=== PATIENT | male | born 1965 | race Caucasian/White ===

== ENCOUNTER 2016-12-06 08:32 | Emergency (ER) | payer MEDICAID | END 2016-12-06 10:20 | LOC: ED 08:32 | DX: H61.23 Impacted cerumen, bilateral (principal) | CPT/HCPCS: 69209; 99282 ==

== ENCOUNTER 2017-04-01 13:28 | Emergency (ER) | payer MEDICAID ==
[~2017-04-01] VITALS: Ht 175.3 cm; Wt 106.0 kg
[2017-04-01 13:44] VITALS: BP 117/78
[2017-04-01] MEDS ORDERED: FLUORESCEIN OPHTHALMIC 1 MG STRIP ONE (15:02)
[2017-04-01] MEDS ORDERED: PROPARACAINE OPHTH 0.5%, 15ML ONE (15:02)
[2017-04-01] MEDS ORDERED: OXYcodone/APAP 10/325MG TABLET PO ONE (15:30)
[2017-04-01] MEDS ORDERED: OXYcodone/APAP 10/325MG TABLET ONE (15:49)
== END 2017-04-01 16:16 | disposition home or self-care (01) ==
LOC: ED 16:13
DX: B02.9 Zoster without complications (principal); F17.210 Nicotine dependence, cigarettes, uncomplicated
CPT/HCPCS: 99283

== ENCOUNTER 2017-12-01 20:09 | Emergency (ER) | payer MEDICAID ==
[~2017-12-01] VITALS: Ht 175.3 cm; Wt 111.5 kg
[2017-12-01 20:17] VITALS: BP 113/74
[2017-12-01] MEDS ORDERED: BACITRACIN ZINC OINT 500U/GM, 0.9 GM ONE (20:57)
[2017-12-01] MEDS ORDERED: CIPROFLOXACIN 500 MG TABLET PO ONE (21:00)
[2017-12-01] MEDS ORDERED: KETOROLAC 30 MG/1 ML ONE (21:17)
[2017-12-01] MEDS ORDERED: HYDROcodone/APAP 5/325 TABLET ONE (21:17)
[2017-12-01] MEDS ORDERED: HYDROcodone/APAP 5/325 TABLET PO ONE (21:30)
[2017-12-01] MEDS ORDERED: KETOROLAC 30 MG/1 ML IM ONE (21:30)
== END 2017-12-01 21:27 | disposition home or self-care (01) ==
LOC: ED 21:15
DX: M72.2 Plantar fascial fibromatosis (principal); I10 Essential (primary) hypertension
CPT/HCPCS: 73630; 96372; 99284; J1885

== ENCOUNTER 2018-01-19 18:33 | Emergency (ER) | payer MEDICAID ==
[~2018-01-19] VITALS: Ht 175.3 cm; Wt 109.8 kg
[2018-01-19 18:35] VITALS: BP 129/67
[2018-01-19] MEDS ORDERED: DOCUSATE 50 MG/5 ML ORAL SOL OT ONE (19:00)
[2018-01-19] MEDS ORDERED: CARBAMIDE PEROXIDE EAR DROPS 6.5%, 15ML ONE (19:04)
[2018-01-19] MEDS ORDERED: CARBAMIDE PEROXIDE EAR DROPS 6.5%, 15ML EACH EAR ONE (19:30)
== END 2018-01-19 21:00 | disposition home or self-care (01) ==
LOC: ED 19:45
DX: H61.23 Impacted cerumen, bilateral (principal); I10 Essential (primary) hypertension
CPT/HCPCS: 69209; 99282

== ENCOUNTER 2018-03-07 18:43 | Emergency (ER) | payer MEDICAID ==
[~2018-03-07] VITALS: Ht 175.3 cm; Wt 106.7 kg
[2018-03-07] MEDS ORDERED: GLUCAGON 1 MG ONE (19:24)
[2018-03-07] MEDS ORDERED: GLUCAGON 1 MG IM ONE (19:30)
[2018-03-07] MEDS ORDERED: ONDANSETRON ODT 4 MG ONE (20:01)
[2018-03-07 20:10] VITALS: BP 104/77
== END 2018-03-07 20:32 | disposition home or self-care (01) ==
LOC: ED 19:55
DX: T18.128A Food in esophagus causing other injury, initial encounter (principal); Y93.89 Activity, other specified; Y99.8 Other external cause status; Y92.89 Other specified places as the place of occurrence of the external cause
CPT/HCPCS: 71045; 96372; 99283; J1610

== ENCOUNTER 2018-03-15 21:16 | Emergency (ER) | payer MEDICAID ==
[~2018-03-15] VITALS: Ht 175.3 cm; Wt 100.0 kg
[2018-03-15] MEDS ORDERED: HYDROcodone/APAP 5/325 TABLET ONE (21:58)
[2018-03-15] MEDS ORDERED: HYDROcodone/APAP 5/325 TABLET PO ONE (22:00)
[2018-03-15 22:42] VITALS: BP 109/64
== END 2018-03-15 22:46 | disposition home or self-care (01) ==
LOC: ED 22:40
DX: S86.211A Strain of muscle(s) and tendon(s) of anterior muscle group at lower leg level, right leg, initial encounter (principal); I10 Essential (primary) hypertension; Z21 Asymptomatic human immunodeficiency virus [HIV] infection status; Z90.49 Acquired absence of other specified parts of digestive tract; W01.0XXA Fall on same level from slipping, tripping and stumbling without subsequent striking against object, initial encounter; Y93.89 Activity, other specified; Y92.098 Other place in other non-institutional residence as the place of occurrence of the external cause; Y99.8 Other external cause status
CPT/HCPCS: 99284

== ENCOUNTER 2018-04-23 21:29 | Inpatient (IN) | payer MEDICAID ==
[~2018-04-23] VITALS: Ht 175.3 cm; Wt 111.0 kg
[2018-04-23] MEDS ORDERED: ALBUTEROL/IPRATROPIUM 2.5MG/0.5MG, 3 ML ONE ×2 (22:00→23:34)
[2018-04-23] MEDS ORDERED: ALBUTEROL SULFATE 2.5 MG/3 ML NPPB ONE ×2 (22:00→23:30)
[2018-04-23] MEDS ORDERED: ALBUTEROL/IPRATROPIUM 2.5MG/0.5MG, 3 ML NPPB ONE (22:00)
[2018-04-23 22:16] LABS: MEAN CORPUSCULAR HEMOGLOBIN 31.8 pg (27.5-34.5); MEAN CORPUSCULAR HGB CONC 33.8 g/dL (33.2-36.2); MEAN CORPUSCULAR VOLUME 94.2 fL (81-97); MEAN PLATELET VOLUME 7.6 fL (7.4-10.4); PLATELET COUNT 241 x10^3/uL (130-400); RED BLOOD COUNT 4.14 x10^6/uL (4.38-5.82); RED CELL DISTRIBUTION WIDTH 14.4 % (9.4-14.8)
[2018-04-23] MEDS ORDERED: ACETAMINOPHEN 500 MG TABLET ONE (22:23)
[2018-04-23 22:26] LABS: ALANINE AMINOTRANSFERASE 116 U/L (12-78); ALBUMIN 3.5 g/dL (3.4-5.0); ANION GAP 6 mmol/L (5-15); CALCIUM 9.1 mg/dL (8.5-10.1); CHLORIDE 106 mmol/L (98-107); CREATININE 0.59 mg/dL (0.7-1.3)
[2018-04-23 22:30] LABS: ALKALINE PHOSPHATASE 97 U/L (45-117); BILIRUBIN,TOTAL 0.2 mg/dL (0.2-1.0); TOTAL PROTEIN 9.1 g/dL (6.4-8.2); TROPONIN I < 0.015 ng/mL (0.000-0.045)
[2018-04-23] MEDS ORDERED: ACETAMINOPHEN 500 MG TABLET PO ONE (22:30)
[2018-04-23 23:21] LABS: BASOPHILS # (AUTO) 0.05 x10^3/uL (0-0.1); BASOPHILS % (AUTO) 1 % (0-1); EOSINOPHILS # (AUTO) 0.08 x10^3/uL (0-0.4); EOSINOPHILS % (AUTO) 2 % (1-7); LYMPHOCYTES # (AUTO) 2.83 x10^3/uL (1-3.4); LYMPHOCYTES % (AUTO) 56 % (22-44); MD SCAN; MONOCYTES # (AUTO) 0.48 x10^3/uL (0.2-0.8); MONOCYTES % (AUTO) 10 % (2-9); NEUTROPHILS # (AUTO) 1.61 x10^3/uL (1.8-6.8); NEUTROPHILS % (AUTO) 32 % (42-75)
[2018-04-24] MEDS ORDERED: ONDANSETRON ODT 4 MG PO PRN (00:30)
[2018-04-24] MEDS ORDERED: POLYETHYLENE GLYCOL 17 GM PACKET PO PRN (00:30)
[2018-04-24] MEDS ORDERED: GUAIFENESIN/DM 200-20MG, 10ML UDC PO PRN (00:30)
[2018-04-24] MEDS ORDERED: BISACODYL 10 MG SUPP PR PRN (00:30)
[2018-04-24 01:03] VITALS: BP 130/73
[2018-04-24] MEDS ORDERED: ALBUTEROL/IPRATROPIUM 2.5MG/0.5MG, 3 ML NPPB PRN (01:30)
[2018-04-24] MEDS: NICOTINE 14MG/24 HR PATCH.TD24 TD SCH (01:56)
[2018-04-24] MEDS: methylPREDNISolone SOD SUCC 125 MG/2 ML IVPush SCH ×3 (01:57→18:11)
[2018-04-24] MEDS: HEPARIN 5,000 UNITS/ML, 1ML SQ SCH ×3 (01:57→18:11)
[2018-04-24] MEDS: AZITHROMYCIN 500 MG in SODIUM CHLORIDE 0.9% 250 ML IV SCH (01:57)
[2018-04-24 04:11] LABS: RAPID INFLUENZA A Negative (Negative); RAPID INFLUENZA B Negative (Negative)
[2018-04-24] MEDS: ACETAMINOPHEN 325 MG TABLET PO PRN ×2 (04:25→09:59)
[2018-04-24 04:54] LABS: BASOPHILS # (AUTO) 0.01 x10^3/uL (0-0.1); BASOPHILS % (AUTO) 0 % (0-1); EOSINOPHILS % (AUTO) 0 % (1-7); LYMPHOCYTES # (AUTO) 0.85 x10^3/uL (1-3.4); LYMPHOCYTES % (AUTO) 23 % (22-44); MD NO; MEAN CORPUSCULAR HEMOGLOBIN 32.1 pg (27.5-34.5); MEAN CORPUSCULAR HGB CONC 34.4 g/dL (33.2-36.2); MEAN CORPUSCULAR VOLUME 93.4 fL (81-97); MEAN PLATELET VOLUME 8.2 fL (7.4-10.4); MONOCYTES # (AUTO) 0.05 x10^3/uL (0.2-0.8); MONOCYTES % (AUTO) 2 % (2-9); NEUTROPHILS # (AUTO) 2.73 x10^3/uL (1.8-6.8); NEUTROPHILS % (AUTO) 75 % (42-75); PLATELET COUNT 230 x10^3/uL (130-400); RED BLOOD COUNT 4.05 x10^6/uL (4.38-5.82)
[2018-04-24 04:56] LABS: ALBUMIN 3.6 g/dL (3.4-5.0); CALCIUM 9.1 mg/dL (8.5-10.1); CHLORIDE 107 mmol/L (98-107)
[2018-04-24 05:00] LABS: ALANINE AMINOTRANSFERASE 120 U/L (12-78); ALKALINE PHOSPHATASE 92 U/L (45-117); ANION GAP 7 mmol/L (5-15); BILIRUBIN,TOTAL 0.3 mg/dL (0.2-1.0); CREATININE 0.86 mg/dL (0.7-1.3); TOTAL PROTEIN 9.4 g/dL (6.4-8.2)
[2018-04-24 06:38] VITALS: BP 130/74
[2018-04-24] MEDS: ALBUTEROL/IPRATROPIUM 2.5MG/0.5MG, 3 ML NPPB SCH ×4 (06:41→20:00)
[2018-04-24] MEDS: SENNA/DOCUSATE TABLET PO SCH (09:00)
[2018-04-24] MEDS: GUAIFENESIN ER 600 MG TABLET PO SCH ×2 (09:59→19:27)
[2018-04-24] MEDS: SODIUM CHLORIDE FLUSH 10ML SYR IVF SCH ×2 (09:59→21:00)
[2018-04-24] MEDS: KETOROLAC 30 MG/1 ML IV PRN ×2 (12:50→19:27)
[2018-04-24 13:08] VITALS: BP 123/65
[2018-04-24 20:46] VITALS: BP 120/65
[2018-04-25] MEDS: AZITHROMYCIN 500 MG in SODIUM CHLORIDE 0.9% 250 ML IV SCH (01:23)
[2018-04-25] MEDS: HEPARIN 5,000 UNITS/ML, 1ML SQ SCH ×2 (01:23→10:09)
[2018-04-25] MEDS: methylPREDNISolone SOD SUCC 125 MG/2 ML IVPush SCH ×2 (01:23→10:47)
[2018-04-25] MEDS: NICOTINE 14MG/24 HR PATCH.TD24 TD SCH (01:24)
[2018-04-25] MEDS: KETOROLAC 30 MG/1 ML IV PRN ×2 (01:33→10:34)
[2018-04-25 01:42] VITALS: BP 117/64
[2018-04-25 04:55] LABS: ALANINE AMINOTRANSFERASE 87 U/L (12-78); ALBUMIN 3.3 g/dL (3.4-5.0); ANION GAP 7 mmol/L (5-15); CALCIUM 9.3 mg/dL (8.5-10.1); CHLORIDE 106 mmol/L (98-107); CREATININE 0.77 mg/dL (0.7-1.3)
[2018-04-25 04:57] LABS: ALKALINE PHOSPHATASE 75 U/L (45-117); BILIRUBIN,TOTAL 0.2 mg/dL (0.2-1.0); TOTAL PROTEIN 8.8 g/dL (6.4-8.2)
[2018-04-25] MEDS: ALBUTEROL/IPRATROPIUM 2.5MG/0.5MG, 3 ML NPPB SCH ×2 (05:38→10:01)
[2018-04-25 07:23] VITALS: BP 119/75
[2018-04-25] MEDS: SODIUM CHLORIDE FLUSH 10ML SYR IVF SCH (08:07)
[2018-04-25] MEDS: SENNA/DOCUSATE TABLET PO SCH (08:07)
[2018-04-25] MEDS: GUAIFENESIN ER 600 MG TABLET PO SCH (08:07)
[2018-04-25] MEDS ORDERED: AZIT250T PO (09:30)
[2018-04-25] MEDS ORDERED: METH4TAB2 PO (09:30)
[2018-04-25] MEDS ORDERED: GUAI600T31 PO (09:30)
[2018-04-25] MEDS ORDERED: ALBU18HF IH (09:32)
== END 2018-04-25 11:50 | disposition home or self-care (01) | DRG 192 ==
LOC: ED 23:19 → EDIP 04-24 00:03 → 3NW 04-24 00:56 → DCLOUNGE 04-25 11:42
PROVIDERS: ADMIT Internal Medicine; ATTEND Internal Medicine
DX: J44.0 Chronic obstructive pulmonary disease with (acute) lower respiratory infection (principal); J20.9 Acute bronchitis, unspecified; J44.1 Chronic obstructive pulmonary disease with (acute) exacerbation; R74.0 Nonspecific elevation of levels of transaminase and lactic acid dehydrogenase [LDH]; D64.9 Anemia, unspecified; F17.210 Nicotine dependence, cigarettes, uncomplicated; E66.9 Obesity, unspecified; Z68.36 Body mass index [BMI] 36.0-36.9, adult; Z82.5 Family history of asthma and other chronic lower respiratory diseases; Z83.3 Family history of diabetes mellitus; Z82.49 Family history of ischemic heart disease and other diseases of the circulatory system; Z90.49 Acquired absence of other specified parts of digestive tract; Z88.0 Allergy status to penicillin; Z88.1 Allergy status to other antibiotic agents; Z82.3 Family history of stroke
CPT/HCPCS: 36415; 87400; 99285; J7613; J7620; 71046; 76700; 80053; 80074; 84484; 85025; 87521; 93005; 94640; G0378; J0456; J1644; J1885; J2930; J7050; J7512

== ENCOUNTER 2018-08-31 20:56 | Emergency (ER) | payer MEDICAID ==
[~2018-08-31] VITALS: Ht 175.3 cm; Wt 114.5 kg
[~2018-08-31 20:56] MED LIST: ALBU18HF IH; AZIT250T PO; GUAI600T31 PO; METH4TAB2 PO
[2018-08-31 20:59] VITALS: BP 127/85
--- NOTE | 2018-08-31 21:30 | NUR ---
PT AMBULATED BACK TO ROOM WITHOUT DIFFICULTY. STATES HIS BOSS SENT HIM TO GET HIS EAR EVALUATED.
--- NOTE | 2018-08-31 22:09 | NUR ---
EAR CERUMEN REMOVED BY EDPA, PT REPORTS SX RESOLVED. PT A&O, RESPS EVEN AND UNLABORED, PT AMB TO DC DESK WITH STEADY GAIT. NADN AT DC.
== END 2018-08-31 22:09 | disposition home or self-care (01) ==
LOC: ED 22:03
DX: H61.23 Impacted cerumen, bilateral (principal); I10 Essential (primary) hypertension; F17.210 Nicotine dependence, cigarettes, uncomplicated; Z90.49 Acquired absence of other specified parts of digestive tract; Z21 Asymptomatic human immunodeficiency virus [HIV] infection status
CPT/HCPCS: 69209; 69210; 99282; 99284

== ENCOUNTER → 2020-11-28 | Outpatient (CLI) | payer MEDICAID, OTHER ==
[~2020-11-28] MED LIST changes: +ACET-1600 PO; +ALBU8.5H8 INH; +GABA600T7 PO; +INSU100I11 SQ-INSULIN; +INSU100I13 SQ-INSULIN; +METF10007 PO; +MONT4GRA PO; +MULT-257 PO; +NPH,100V5 INJ; +PANT40TA3 PO
[2020-11-28 14:50] LABS: ALANINE AMINOTRANSFERASE 106 U/L (12-78); ALBUMIN 3.7 g/dL (3.4-5.0); ANION GAP 7 mmol/L (5-15); CALCIUM 8.4 mg/dL (8.5-10.1); CHLORIDE 109 mmol/L (98-107); CREATININE 0.74 mg/dL (0.7-1.3)
[2020-11-28 14:52] LABS: ALKALINE PHOSPHATASE 98 U/L (45-117); BILIRUBIN,TOTAL 0.2 mg/dL (0.2-1.0)
== END | disposition home or self-care (01) ==
LOC: STAR 13:18
PROVIDERS: ATTEND Surgery
DX: Z01.818 Encounter for other preprocedural examination (principal); K40.90 Unilateral inguinal hernia, without obstruction or gangrene, not specified as recurrent; Z20.822 Contact with and (suspected) exposure to COVID-19
CPT/HCPCS: 36415; 80053; 93005; U0003; U0005

== ENCOUNTER 2020-12-04 11:25 | Day surgery (SDC) | payer MEDICAID, OTHER ==
[~2020-12-04] VITALS: Ht 175.3 cm; Wt 117.7 kg
[2020-12-04 12:00] VITALS: BP 124/84
[2020-12-04] MEDS ORDERED: CHLORHEXIDINE 15 ML UDC ONE (12:11)
[2020-12-04] MEDS ORDERED: LACTATED RINGERS 1,000 ML IV SCH (12:30)
[2020-12-04] MEDS ORDERED: CHLORHEXIDINE 15 ML UDC PO ONE (12:30)
[2020-12-04] MEDS ORDERED: MIDAZOLAM 1 MG/ML, 2ML ONE (13:30)
[2020-12-04] MEDS ORDERED: FENTANYL PF 100 MCG/2ML ONE ×2 (13:30→15:13)
[2020-12-04] MEDS ORDERED: BUPIVACAINE/PF 0.5% ONE (13:36)
[2020-12-04] MEDS ORDERED: CLINDAMYCIN 150 MG/ML, 6ML ONE (13:51)
[2020-12-04] MEDS ORDERED: LIDOCAINE 1%, 20ML ONE (14:03)
[2020-12-04] MEDS ORDERED: IBUP-1223 PO (14:56)
[2020-12-04] MEDS ORDERED: OXYC5TAB2 PO (14:56)
[2020-12-04] MEDS ORDERED: ACET-1600 PO (14:56)
[2020-12-04] MEDS ORDERED: OXYcodone 5 MG/5 ML ORAL.SOL UDC ONE (15:13)
[2020-12-04] MEDS ORDERED: ACETAMINOPHEN 650 MG/20.3 ML UDC ONE (15:14)
[2020-12-04] MEDS ORDERED: SUCCINYLCHOLINE 20 MG/ML, 10ML ONE (15:18)
[2020-12-04] MEDS ORDERED: ROCURONIUM 10MG/ML,5ML ONE (15:18)
[2020-12-04] MEDS ORDERED: ONDANSETRON 2MG/ML, 2ML ONE (15:18)
[2020-12-04] MEDS ORDERED: PROPOFOL 10 MG/ML, 20ML ONE (15:18)
[2020-12-04] MEDS ORDERED: GLYCOPYRROLATE 0.2MG/1ML, 5ML ONE (15:18)
[2020-12-04] MEDS ORDERED: DEXAMETHASONE 4 MG/ML, 1ML ONE (15:18)
[2020-12-04] MEDS ORDERED: NEOSTIGMINE 1 MG/ML, 10ML ONE (15:18)
[2020-12-04] MEDS ORDERED: CEFAZOLIN 1,000 MG ONE (15:18)
[2020-12-04] MEDS: FENTANYL PF 100 MCG/2ML IV PRN ×2 (15:20→15:25)
[2020-12-04] MEDS ORDERED: KETOROLAC 30 MG/1 ML ONE (15:24)
[2020-12-04] MEDS ORDERED: HYDROmorphone 1 MG/ML, 1ML INJ ONE (15:24)
[2020-12-04] MEDS ORDERED: ONDANSETRON 2MG/ML, 2ML IVPush PRN (15:30)
[2020-12-04] MEDS ORDERED: KETOROLAC 30 MG/1 ML IVPush PRN (15:30)
[2020-12-04] MEDS ORDERED: PROMETHAZINE 25 MG/ML, 1ML IVPush PRN (15:30)
[2020-12-04] MEDS ORDERED: HYDROcodone/APAP 7.5-325MG/15ML UDC PO PRN (15:30)
[2020-12-04] MEDS ORDERED: MEPERIDINE/PF 25MG/0.5ML IVPush PRN (15:30)
[2020-12-04] MEDS ORDERED: ACETAMINOPHEN 325 MG TABLET PO PRN (15:30)
[2020-12-04] MEDS ORDERED: HYDROmorphone 1 MG/ML, 1ML INJ IVPush PRN (15:30)
[2020-12-04] MEDS ORDERED: OXYcodone 5 MG/5 ML ORAL.SOL UDC PO PRN (15:30)
[2020-12-04] MEDS ORDERED: DIPHENHYDRAMINE 50 MG/ML, 1ML ONE (15:58)
[2020-12-04] MEDS ORDERED: DIPHENHYDRAMINE 50 MG/ML, 1ML IVPush PRN (16:00)
[2020-12-04] MEDS ORDERED: ALBUTEROL HFA 90 MCG/SPRAY INH PRN (19:00)
== END 2020-12-04 20:40 | disposition home or self-care (01) ==
LOC: OUT 11:25
PROVIDERS: ATTEND Surgery
DX: K40.90 Unilateral inguinal hernia, without obstruction or gangrene, not specified as recurrent (principal); D17.6 Benign lipomatous neoplasm of spermatic cord; R59.9 Enlarged lymph nodes, unspecified; E11.9 Type 2 diabetes mellitus without complications; E66.9 Obesity, unspecified; F17.210 Nicotine dependence, cigarettes, uncomplicated; Z68.39 Body mass index [BMI] 39.0-39.9, adult; Z79.4 Long term (current) use of insulin; Z79.899 Other long term (current) drug therapy; Z88.0 Allergy status to penicillin; Z88.5 Allergy status to narcotic agent; Z88.8 Allergy status to other drugs, medicaments and biological substances
CPT/HCPCS: 49650; 82962; 88305; C1781; J0330; J0690; J1100; J1170; J1200; J1885; J2250; J2405; J2704; J2710; J3010; J7120; S2900

== ENCOUNTER 2020-12-12 21:12 | Emergency (ER) | payer MEDICAID ==
[~2020-12-12] VITALS: Ht 175.3 cm; Wt 110.0 kg
[~2020-12-12 21:12] MED LIST changes: +IBUP-1223 PO; +OXYC5TAB2 PO
--- NOTE | 2020-12-12 22:58 | NUR ---
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
--- NOTE | 2020-12-12 23:00 | NUR ---
First contact with patient: patient presents to ER c/o left side groin pain into LLQ abd pain since Tuesday. Patient had a hernia repair last week and is still having pain. Patient is in NAD. Respirations even and unlabored.
[2020-12-12] MEDS ORDERED: MORPHINE SULFATE 4 MG/ML, 1ML IVPush PRN (23:30)
[2020-12-12] MEDS ORDERED: MORPHINE SULFATE 4 MG/ML, 1ML ONE (23:44)
[2020-12-12 23:54] LABS: MICROSCOPIC NOT IND
[2020-12-13 00:28] LABS: BASOPHILS % (AUTO) 1 % (0-1); EOSINOPHILS % (AUTO) 2 % (1-7); LYMPHOCYTES % (AUTO) 39 % (22-44); MEAN PLATELET VOLUME 7.3 fL (7.4-10.4); MONOCYTES % (AUTO) 11 % (2-9); NEUTROPHILS % (AUTO) 48 % (42-75); PLATELET COUNT 295 x10^3/uL (130-400); RED BLOOD COUNT 4.36 x10^6/uL (4.38-5.82); RED CELL DISTRIBUTION WIDTH 17.9 % (9.4-14.8)
[2020-12-13 00:37] LABS: ALBUMIN 3.5 g/dL (3.4-5.0); ANION GAP 5 mmol/L (5-15); CALCIUM 8.8 mg/dL (8.5-10.1); CHLORIDE 109 mmol/L (98-107); CREATININE 0.74 mg/dL (0.7-1.3)
--- NOTE | 2020-12-13 01:27 | NUR ---
Patient to CT.
--- NOTE | 2020-12-13 01:34 | NUR ---
Patient returned from CT.
--- NOTE | 2020-12-13 03:14 | NUR ---
Patient resting in gurney. Respirations even and unlabored. Called CT for an update on read; awaiting call back.
[2020-12-13 04:23] VITALS: BP 115/59
--- NOTE | 2020-12-13 04:24 | NUR ---
Discharge instructions given. All questions and concerns addressed. Patient wheeled out in a wheelchair. Belongings with patient.
[2020-12-13] MEDS ORDERED: OMNIPAQUE 350 MG/ML, 100ML BOTTLE ONE (04:58)
== END 2020-12-13 04:26 | disposition home or self-care (01) ==
LOC: ED 23:07
DX: K40.91 Unilateral inguinal hernia, without obstruction or gangrene, recurrent (principal); R10.32 Left lower quadrant pain; F17.210 Nicotine dependence, cigarettes, uncomplicated; I10 Essential (primary) hypertension; E11.9 Type 2 diabetes mellitus without complications
CPT/HCPCS: 36415; 74177; 76857; 80048; 81003; 82040; 83605; 85025; 99285; 99406; Q9967

== ENCOUNTER 2021-01-20 19:21 | Emergency (ER) | payer MEDICAID ==
[~2021-01-20] VITALS: Ht 175.3 cm; Wt 115.0 kg
[2021-01-20] MEDS ORDERED: SODIUM CHLORIDE FLUSH 10ML SYR IVF ONE (20:00)
[2021-01-20 20:20] LABS: BASOPHILS % (AUTO) 1 % (0-1); EOSINOPHILS % (AUTO) 2 % (1-7); LYMPHOCYTES % (AUTO) 52 % (22-44); MEAN CORPUSCULAR HEMOGLOBIN 25.8 pg (27.5-34.5); MEAN CORPUSCULAR HGB CONC 32.4 g/dL (33.2-36.2); MEAN PLATELET VOLUME 7.4 fL (7.4-10.4); MONOCYTES % (AUTO) 10 % (2-9); NEUTROPHILS % (AUTO) 36 % (42-75); PLATELET COUNT 284 x10^3/uL (130-400); RED CELL DISTRIBUTION WIDTH 17.6 % (9.4-14.8)
[2021-01-20 20:23] LABS: ALANINE AMINOTRANSFERASE 60 U/L (12-78); ALBUMIN 3.4 g/dL (3.4-5.0); ANION GAP 4 mmol/L (5-15); CALCIUM 8.6 mg/dL (8.5-10.1); CHLORIDE 109 mmol/L (98-107); CREATININE 0.84 mg/dL (0.7-1.3)
[2021-01-20 20:26] LABS: ALKALINE PHOSPHATASE 89 U/L (45-117); BILIRUBIN,TOTAL 0.3 mg/dL (0.2-1.0); TOTAL PROTEIN 9.4 g/dL (6.4-8.2)
--- NOTE | 2021-01-20 21:30 | NUR ---
STARTED 22G IN LEFT HAND LEFT IN TACT AND SENT PATIENT BACK TO LOBBY WAITING.
[2021-01-20] MEDS ORDERED: OMNIPAQUE 350 MG/ML, 150 ML BOTTLE ONE (21:40)
[2021-01-20 22:29] VITALS: BP 133/70
--- NOTE | 2021-01-20 22:37 | NUR ---
PT WHEELED TO ROOM. CHANGED INTO GOWN. PT C/O LLQ PAIN X 3 DAYS. PT RECENTLY HAD LAP HERNIA REPAIR HERE AT [facility], SITES [facility]. PT DENIES ANY S/S ASSOCIALTED C THIS DISCOMFORT. PT GIVEN URINAL, UNABLE TO VOID AT THIS TIME. PT REQUESTING PAIN MEDS. PT ALSO STATES HE WAS AT [facility] TODAY, AND CAME TO THIS ER TONIGHT D/T INCREASED PAIN. TBS. WILL CTM. FAMILY AT BS.
[2021-01-20] MEDS ORDERED: MAALOX/HYOSCYAMINE/LIDOCAINE 45 ML BTL PO ONE (23:00)
[2021-01-20] MEDS ORDERED: MAALOX/HYOSCYAMINE/LIDOCAINE 45 ML BTL ONE (23:17)
--- NOTE | 2021-01-20 23:34 | NUR ---
PT DENIES ANY RELIEF C [place]. UA OBTAINED & SENT. FAMILY AT BS. WILL CTM.
[2021-01-20] MEDS ORDERED: HYDROcodone/APAP 5/325 TABLET ONE (23:39)
[2021-01-20 23:42] LABS: MICROSCOPIC NOT IND
--- NOTE | 2021-01-20 23:48 | NUR ---
PT AWARE OF PLAN TO DC HOME. IV DC. BLEEDING CONTROLLED. GIVEN MED PER SEP.
[2021-01-21] MEDS ORDERED: HYDROcodone/APAP 5/325 TABLET PO ONE
== END 2021-01-21 00:04 | disposition home or self-care (01) ==
LOC: ED 22:53
DX: R10.32 Left lower quadrant pain (principal); I10 Essential (primary) hypertension; E11.9 Type 2 diabetes mellitus without complications; J44.9 Chronic obstructive pulmonary disease, unspecified; F17.210 Nicotine dependence, cigarettes, uncomplicated; Z90.49 Acquired absence of other specified parts of digestive tract
CPT/HCPCS: 36415; 74177; 80053; 81003; 83690; 85025; 99285; 99406; Q9967

== ENCOUNTER 2021-01-23 17:48 | Emergency (ER) | payer MEDICAID ==
[~2021-01-23] VITALS: Ht 175.3 cm; Wt 121.4 kg
--- NOTE | 2021-01-23 19:07 | NUR ---
assessment made. chart up for MD to see.
[2021-01-23] MEDS ORDERED: LIDOCAINE-MPF 1%, 5ML ONE (19:13)
[2021-01-23] MEDS ORDERED: BUPIVACAINE 0.25% ONE (19:13)
--- NOTE | 2021-01-23 19:22 | NUR ---
medication given by provider.
[2021-01-23 19:33] VITALS: BP 143/78
--- NOTE | 2021-01-23 19:33 | NUR ---
nerve block done. patient discharged with prescriptions and instruction. verbalized understanding.
[2021-01-23] MEDS ORDERED: BUPIVACAINE 0.25% INFIL ONE (20:00)
[2021-01-23] MEDS ORDERED: LIDOCAINE 1%, 2ML INFIL ONE (20:00)
== END 2021-01-23 19:41 | disposition home or self-care (01) ==
LOC: ED 18:25
DX: K02.9 Dental caries, unspecified (principal); F17.210 Nicotine dependence, cigarettes, uncomplicated; Z72.9 Problem related to lifestyle, unspecified; I10 Essential (primary) hypertension; E11.9 Type 2 diabetes mellitus without complications; J44.9 Chronic obstructive pulmonary disease, unspecified; Z21 Asymptomatic human immunodeficiency virus [HIV] infection status
CPT/HCPCS: 64400; 99284; 99406; J3490

== ENCOUNTER 2021-02-24 19:02 | Emergency (ER) | payer MEDICAID ==
--- NOTE | 2021-02-24 19:22 | NUR ---
NIL X1 WHEN CALLED FOR TRIAGE.
--- NOTE | 2021-02-24 20:10 | NUR ---
NIL X 2 WHEN CALLED FOR TRIAGE.
--- NOTE | 2021-02-24 22:03 | NUR ---
NIL X 3 WHEN CALLED FOR TRIAGE.
== END 2021-02-24 22:05 ==
LOC: ED 19:30
DX: K08.89 Other specified disorders of teeth and supporting structures (principal); Z53.21 Procedure and treatment not carried out due to patient leaving prior to being seen by health care provider

== ENCOUNTER 2021-02-25 05:07 | Emergency (ER) | payer MEDICAID ==
[~2021-02-25] VITALS: Ht 175.3 cm; Wt 116.5 kg
[2021-02-25 05:27] VITALS: BP 123/70
--- NOTE | 2021-02-25 05:27 | NUR ---
PATIENT COMPLAINS OF DENTAL PAIN "FOR A WHILE". STATES ABSOLUTE DENTAL NOT ABLE TO GET HIM IN UNTIL APRIL. STATES PAIN IS A 10/10 TO RIGHT SIDE OF MOUTH.
--- NOTE | 2021-02-25 05:53 | NUR ---
Patient given discharge instructions and they have confirmed that they understand the instructions. Patient ambulatory with steady gait. NAD, all questions answered appropriately, denies additional needs at this time. No personal belongings left in room after discharge.
== END 2021-02-25 05:55 | disposition home or self-care (01) ==
LOC: ED 05:36
DX: K04.7 Periapical abscess without sinus (principal); K02.9 Dental caries, unspecified; I10 Essential (primary) hypertension; E11.9 Type 2 diabetes mellitus without complications; J44.9 Chronic obstructive pulmonary disease, unspecified; Z21 Asymptomatic human immunodeficiency virus [HIV] infection status; F17.200 Nicotine dependence, unspecified, uncomplicated; Z88.0 Allergy status to penicillin; Z88.1 Allergy status to other antibiotic agents; Z90.49 Acquired absence of other specified parts of digestive tract
CPT/HCPCS: 64400; 99284